=== PATIENT | female | born 1975 | race Caucasian/White ===

== ENCOUNTER 2020-01-03 20:49 | Inpatient (IN) | payer BC ==
[~2020-01-03] VITALS: Ht 172.7 cm; Wt 103.9 kg
[2020-01-03 22:56] LABS: Basophils # (auto) 0 10 ^3/uL (0-0.2); Basophils % (auto) 0.5 % (0.0-2.0); Eosinophils # (auto) 0.1 10 ^3/uL (0-0.8); Lymphocytes # (auto) 1.3 10 ^3/uL (0.4-5.4)
[2020-01-03 22:59] LABS: Eosinophils % (auto) 1.1 % (0.0-7.0); Hematocrit 38.2 % (36.0-46.0); Hemoglobin 12.8 g/dL (12.2-16.2); Lymphocytes % (auto) 14.1 % (10.0-50.0); Mean Corpuscular Hemoglobin 33.5 pg (28.0-32.0); Mean Corpuscular Hgb Conc. 33.5 g/dL (32.0-36.0); Monocytes # (auto) 0.4 10 ^3/uL (0-1.3); Monocytes % (auto) 4.6 % (0.0-12.0); Neutrophils # (auto) 7.5 10 ^3/uL (1.6-8.6); Neutrophils % (auto) 79.7 % (37.0-80.0); Nucleated Red Blood Cells % 0.1 %; Platelet Count (auto) 259 10^3/uL (140-450); Red Blood Cells 3.82 10^6/uL (4.0-5.20); Red Cell Distribution Width 14.4 % (11.8-14.3); White Blood Cell 9.4 10^3/uL (4.4-10.8)
[2020-01-03 23:13] LABS: INR 0.97 (0.9-1.15); Partial Thromboplastin Time 31.6 sec (23.64-32.05)
[2020-01-03 23:14] LABS: Albumin 3.1 g/dL (3.4-5.0); BUN/Creatinine Ratio 15.4; Calcium 8.2 mg/dL (8.5-10.1); Magnesium 2.3 mg/dL (1.6-2.6); Potassium 3.8 mmol/L (3.5-5.1)
[2020-01-03 23:16] LABS: Bilirubin, Total 0.6 mg/dL (0.2-1.0)
[2020-01-03] MEDS ORDERED: ACETAMINOPHEN 325 MG TAB PO ONE (23:45)
[2020-01-04 00:01] LABS: Urine Bacteria FEW /hpf (None Seen); Urine Blood Negative /uL (Negative); Urine Mucus FEW (None Seen); Urine WBC 3 /hpf (0 - 5)
[2020-01-04] MEDS ORDERED: SODIUM CHLORIDE 0.9% 1,000 ML IV ONE (03:30)
[2020-01-04] MEDS ORDERED: LORazepam 0.5 MG TAB PO ONE (03:30)
[2020-01-04] MEDS ORDERED: methylPREDNISolone SOD SUCC 125 MG/2 ML VL IV ONE (03:30)
[2020-01-04] MEDS ORDERED: cefTRIAXone 1GM/50ML D5W 50 ML IV ONE ×2 (03:30→09:30)
[2020-01-04] MEDS ORDERED: AZITHROMYCIN 500MG/ 250ML 250 ML IV ONE (08:15)
[2020-01-04] MEDS ORDERED: TEMAZEPAM 15 MG CAP PO PRN (09:30)
[2020-01-04] MEDS ORDERED: MORPHINE SULF INJ 2 MG/ML SYRINGE 1ML IV PRN (09:30)
[2020-01-04] MEDS ORDERED: ACETAMINOPHEN 500 MG TAB PO PRN (09:30)
[2020-01-04] MEDS ORDERED: NITROGLYCERIN 0.4 MG SL TAB SL PRN (09:30)
[2020-01-04] MEDS ORDERED: THIAMINE 100mg/ml INJ (200mg/2ml VIAL) IV ONE (09:30)
[2020-01-04] MEDS: CHOLECALCIFEROL (VITD3) 1,000UNIT=25mCg TAB PO SCH (10:00)
[2020-01-04 10:29] LABS: Alcohol, Urine < 3.0 mg/dL (0-10); Amphetamine Screen, Urine NEGATIVE (NEGATIVE); Barbiturate Scree,Urine NEGATIVE (NEGATIVE); Cannabinoid Screen, Urine NEGATIVE (NEGATIVE); Cocaine Screen, Urine NEGATIVE (NEGATIVE); Phencyclidine Screen, Urine NEGATIVE (NEGATIVE)
[2020-01-04 10:39] LABS: Benzodiazephine Screen, Urine POSITIVE (NEGATIVE); Opiate Scree,Urine NEGATIVE (NEGATIVE)
[2020-01-04] MEDS: ASPirin 81 mg TAB PO SCH (11:04)
[2020-01-04] MEDS: ZINC SULFATE 220mg CAP or TAB PO SCH (11:05)
[2020-01-04] MEDS: ENALAPRIL MALEATE 2.5 MG TAB PO SCH (11:05)
[2020-01-04] MEDS: FAMOTIDINE 20 MG TAB PO SCH ×2 (11:06→22:29)
[2020-01-04] MEDS: ASCORBIC ACID 1,000 MG TAB PO SCH (11:06)
[2020-01-04] MEDS: ENOXAPARIN SOD 40 MG/0.4 ML SYRINGE SC SCH ×2 (11:06→22:29)
[2020-01-04] MEDS: THIAMINE 100mg/ml INJ (200mg/2ml VIAL) IV SCH (11:10)
[2020-01-04] MEDS ORDERED: FUROSEMIDE 20 MG/2 ML VIAL IV ONE (12:00)
[2020-01-04] MEDS ORDERED: NICOTINE 14 MG/24HR TOPICAL PATCH TD ONE (12:15)
--- NOTE | 2020-01-04 12:20 | NUR ---
Telemetry admit from [facility] admitted to Telemetry unit after SBAR received from RAFFI Khan. Patient oriented to CORINA HAWTHORNE RN primary RN, unit, room, bed, and unit policies regarding patient care and visiting hours. Patient now on continuous telemetry monitoring, tele box #4 and telemetry reading on arrival to unit is 80bpm NSR. Patient placed on bedside oxygen @2L n/c, weighed by bedscale and encouraged to call if they need something. Bed in lowest/locked position, bed rails up x2, call light within reach. All questions and concerns addressed, patient verbalized understanding.
[2020-01-04 12:53] LABS: Cholesterol 192 mg/dL (< 200); HDL Cholesterol 36 mg/dL (40-59); LDL Cholesterol 142 mg/dL (< 100); Triglycerides 102 mg/dL (< 150)
[2020-01-04] MEDS ORDERED: ALBUTEROL SULF HFA 90MCG INH 200DOSE IN SCH (14:00)
[2020-01-04] MEDS ORDERED: CITA10TA70 PO (14:56)
[2020-01-04] MEDS ORDERED: ATOR10TA52 PO (14:56)
[2020-01-04] MEDS ORDERED: IBUP600T27 PO (14:56)
[2020-01-04] MEDS ORDERED: METO-169 PO (14:56)
--- NOTE | 2020-01-04 15:00 | NUR ---
CARDIO SPOKE WITH DARIN MARTIN RE: PATIENT B/P. NEW ORDERS RECEIVED/WILL CARRY OUT. WILL CONTINUE TO MONITOR
[2020-01-04 16:53] VITALS: BP 142/90
[2020-01-04] MEDS: FUROSEMIDE 20 MG/2 ML VIAL IV SCH (17:09)
[2020-01-04 20:00] VITALS: BP 162/89
[2020-01-04 21:55] VITALS: BP 162/89
[2020-01-04] MEDS ORDERED: ATORVASTATIN 20 MG TAB PO SCH (22:00)
[2020-01-04] MEDS: METOPROLOL TARTRATE 25 MG TAB PO SCH (22:31)
[2020-01-04] MEDS: ATORVASTATIN 20 MG TAB PO SCH (22:32)
[2020-01-05] MEDS ORDERED: PANTOPRAZOLE 40 MG TAB PO ONE (00:45)
[2020-01-05 05:00] VITALS: BP 152/89
[2020-01-05 05:37] LABS: Basophils # (auto) 0 10 ^3/uL (0-0.2); Basophils % (auto) 0.2 % (0.0-2.0); Eosinophils # (auto) 0 10 ^3/uL (0-0.8); Eosinophils % (auto) 0.2 % (0.0-7.0); Hematocrit 37.2 % (36.0-46.0); Hemoglobin 12.6 g/dL (12.2-16.2); Lymphocytes % (auto) 17.7 % (10.0-50.0); Mean Corpuscular Hemoglobin 33.9 pg (28.0-32.0); Mean Corpuscular Hgb Conc. 33.9 g/dL (32.0-36.0); Monocytes # (auto) 0.6 10 ^3/uL (0-1.3); Monocytes % (auto) 5.2 % (0.0-12.0); Neutrophils # (auto) 8.9 10 ^3/uL (1.6-8.6); Neutrophils % (auto) 76.7 % (37.0-80.0); Nucleated Red Blood Cells % 0.1 %; Platelet Count (auto) 289 10^3/uL (140-450); Red Blood Cells 3.72 10^6/uL (4.0-5.20); White Blood Cell 11.5 10^3/uL (4.4-10.8)
[2020-01-05 05:53] LABS: Albumin 3.1 g/dL (3.4-5.0); Calcium 8.8 mg/dL (8.5-10.1); Potassium 3.2 mmol/L (3.5-5.1)
[2020-01-05 05:59] LABS: BUN/Creatinine Ratio 17.6; Bilirubin, Total 0.4 mg/dL (0.2-1.0); Total Protein 7.1 g/dL (6.4-8.2)
[2020-01-05] MEDS: FUROSEMIDE 20 MG/2 ML VIAL IV SCH ×2 (06:14→17:55)
--- NOTE | 2020-01-05 07:45 | NUR ---
Opening Shift Note Assumed care of patient, awake, alert, and oriented. No S/S of distress/SOB or pain. Bed in lowest/locked position, bed rails up x2, call light within reach. Instructed on POC and to call for assist PRN. Will continue to monitor for changes Q1hr and PRN.
[2020-01-05 09:07] VITALS: BP 146/73
[2020-01-05] MEDS: cefTRIAXone 1GM/50ML D5W 50 ML IV SCH (09:09)
[2020-01-05] MEDS: ASCORBIC ACID 1,000 MG TAB PO SCH (09:10)
[2020-01-05] MEDS: ZINC SULFATE 220mg CAP or TAB PO SCH (09:10)
[2020-01-05] MEDS: ENOXAPARIN SOD 40 MG/0.4 ML SYRINGE SC SCH ×2 (09:11→21:04)
[2020-01-05] MEDS: CHOLECALCIFEROL (VITD3) 1,000UNIT=25mCg TAB PO SCH (09:11)
[2020-01-05] MEDS: NICOTINE 14 MG/24HR TOPICAL PATCH TD SCH (09:12)
[2020-01-05] MEDS: PANTOPRAZOLE 40 MG TAB PO SCH ×2 (09:12→21:03)
[2020-01-05] MEDS: FAMOTIDINE 20 MG TAB PO SCH ×2 (09:12→21:03)
[2020-01-05] MEDS: METOPROLOL TARTRATE 25 MG TAB PO SCH ×3 (09:12→21:03)
[2020-01-05] MEDS: ASPirin 81 mg TAB PO SCH (09:13)
[2020-01-05] MEDS: THIAMINE 100mg/ml INJ (200mg/2ml VIAL) IV SCH (09:13)
[2020-01-05] MEDS: ENALAPRIL MALEATE 2.5 MG TAB PO SCH (09:13)
[2020-01-05] MEDS ORDERED: POTASSIUM CHL 20 Meq TABLET PO ONE (12:00)
[2020-01-05] MEDS ORDERED: IOHEXOL 350 MG/ML 100ML IJ ONE (12:33)
[2020-01-05 13:00] VITALS: BP 157/99
[2020-01-05] MEDS: hydrALAZINE HCL 20 MG/ML VL IV PRN (13:20)
[2020-01-05] MEDS ORDERED: OMEP20TA PO (14:57)
[2020-01-05] MEDS ORDERED: ALPR1TAB7 PO (15:35)
[2020-01-05] MEDS ORDERED: BUPR8MIS SL (15:35)
[2020-01-05] MEDS ORDERED: guaiFENesin-DM 100/10mg/5ml SYR PO PRN (15:45)
[2020-01-05 17:09] VITALS: BP 145/82
--- NOTE | 2020-01-05 17:50 | NUR ---
PAGED HOSPITALIST PAGED HOSPITALIST RE: PATIENT HAS HEADACHE. PATIENT DOESN'T WANT TO TAKE EMAR PRESCRIBED PAIN MEDICATIONS. PATIENT TAKES IBUPROFEN 600MG Q6HPRN AT HOME. AWAITING RETURN CALL
--- NOTE | 2020-01-05 18:25 | NUR ---
HOSPITALIST CALL BACK RECEIVED CALL FROM DR SOFIA RE: PATIENT HEADACHE AND MEDICATION PATIENT TAKES AT HOME. ONE TIME ORDER OF IBUPROFEN 600 MG RECEIVED. WILL MEDICATE PER MD ORDERS. WILL CONTINUE TO MONITOR
[2020-01-05] MEDS ORDERED: IBUPROFEN 600 MG TAB PO ONE (18:30)
[2020-01-05] MEDS: ATORVASTATIN 20 MG TAB PO SCH (21:03)
[2020-01-05] MEDS: POTASSIUM CHL 20 Meq TABLET PO SCH (21:03)
--- NOTE | 2020-01-05 21:30 | NUR ---
IV insertion IV access obtained, via clean sterile technique by inserting 22 gauge catheter at RFA after 1 attempt. IV secured properly. No trauma to site. Patient tolerated well. IV removal IV DC'd with clean sterile technique, catheter fully intact. Pressure dressing applied to site. Patient tolerated well.
[2020-01-05 22:00] VITALS: BP 187/99
[2020-01-05 23:40] VITALS: BP 145/84
--- NOTE | 2020-01-06 03:29 | NUR ---
OPENING SHIFT NOTE: ARRIVED ON SHIFT REPORT RECEIVED. PATIENT RESTING IN BED, NO SIGNS OF DISTRESS. RESPIRATIONS EVEN AND UNLABORED. WILL CONTINUE TO MONITOR.
[2020-01-06 05:00] VITALS: BP 149/79
[2020-01-06 06:29] LABS: Potassium 3.7 mmol/L (3.5-5.1)
[2020-01-06] MEDS: FUROSEMIDE 20 MG/2 ML VIAL IV SCH ×2 (06:35→18:00)
[2020-01-06 06:41] LABS: Calcium 8.6 mg/dL (8.5-10.1)
[2020-01-06] MEDS: cefTRIAXone 1GM/50ML D5W 50 ML IV SCH (08:05)
[2020-01-06] MEDS: hydrALAZINE HCL 20 MG/ML VL IV PRN ×3 (08:06→22:41)
[2020-01-06 08:56] VITALS: BP 156/105
[2020-01-06] MEDS ORDERED: AZITHROMYCIN 500MG/ 250ML 250 ML IV ONE (10:45)
[2020-01-06] MEDS ORDERED: MULTIPLE VITAMINS W/ MINERALS TAB PO ONE (11:00)
--- NOTE | 2020-01-06 11:00 | NUR ---
CARMEN WALKED TO LAB .
[2020-01-06] MEDS: FAMOTIDINE 20 MG TAB PO SCH ×2 (11:40→20:52)
[2020-01-06] MEDS: POTASSIUM CHL 20 Meq TABLET PO SCH ×2 (11:40→20:53)
[2020-01-06] MEDS: ASPirin 81 mg TAB PO SCH (11:40)
[2020-01-06] MEDS: PANTOPRAZOLE 40 MG TAB PO SCH ×2 (11:40→20:53)
[2020-01-06] MEDS: ENALAPRIL MALEATE 2.5 MG TAB PO SCH (11:40)
[2020-01-06] MEDS: NICOTINE 14 MG/24HR TOPICAL PATCH TD SCH (11:41)
[2020-01-06] MEDS ORDERED: ALPRAZolam 0.5 MG TAB PO PRN (13:00)
[2020-01-06 13:18] VITALS: BP 147/92
[2020-01-06] MEDS: PROMETHAZINE HCL 25 MG/ML 1ML IV PRN ×2 (13:47→20:56)
--- NOTE | 2020-01-06 14:00 | NUR ---
24-HOUR URINE INITIATED, FIRST VOID DISCARDED. URINE HAT PLACED IN TOILET FOR COLLECTION, AND CONTAINER PLACED ON ICE.
[2020-01-06] MEDS: traMADol HCL 50 MG TAB PO PRN ×2 (14:05→20:52)
[2020-01-06] MEDS: chlordiazePOXIDE HCL 25 MG CAP PO PRN ×2 (14:48→20:53)
--- NOTE | 2020-01-06 17:11 | NUR ---
PATIENT REPORTING PERSISTENT HEADACHE DESPITE ANXIETY, PAIN, AND NAUSEA MEDICATIONS. PATIENT SHAKY, WILL CONTINUE LIBRIUM FOR DT S/S ORDERED. BP RE-ASSESSED AFTER SECOND HYDRALAZINE 148/71MMHG.
[2020-01-06 17:16] VITALS: BP 148/81
--- NOTE | 2020-01-06 18:36 | NUR ---
PATIENT ASLEEP, RESTING IN BED, NO SIGNS OF DISTRESS.
--- NOTE | 2020-01-06 19:25 | NUR ---
CARE ENDORSED TO YOGESH NUGENT.
[2020-01-06] MEDS: LABETALOL HCL 200 MG TAB PO SCH (20:52)
[2020-01-06] MEDS: ATORVASTATIN 20 MG TAB PO SCH (20:53)
[2020-01-06 22:00] VITALS: BP 177/101
[2020-01-06 22:40] VITALS: BP 165/98
[2020-01-07 00:30] VITALS: BP 152/85
[2020-01-07] MEDS: chlordiazePOXIDE HCL 25 MG CAP PO PRN ×2 (01:34→05:30)
[2020-01-07] MEDS: traMADol HCL 50 MG TAB PO PRN ×3 (01:34→09:49)
[2020-01-07] MEDS: PROMETHAZINE HCL 25 MG/ML 1ML IV PRN ×3 (01:35→09:48)
[2020-01-07 05:00] VITALS: BP 143/69
[2020-01-07] MEDS: FUROSEMIDE 20 MG/2 ML VIAL IV SCH (05:31)
[2020-01-07 08:00] VITALS: BP 148/79
--- NOTE | 2020-01-07 08:00 | NUR ---
ASSESSMENT NOTE PT IS ALERT ORIENTED X4, RESTING IN BED COMFORTABLE, ABLE TO SELF REPOSITION AND VERBALIS HER DEMANDS, AMBULATE NEEDED, PAIN 0/10 AT THIS TIME, CALL LIGHT WITHIN REACH
[2020-01-07] MEDS: cefTRIAXone 1GM/50ML D5W 50 ML IV SCH (08:40)
[2020-01-07 09:00] VITALS: BP 161/101
--- NOTE | 2020-01-07 09:00 | NUR ---
IV insertion IV access obtained, via clean sterile technique by inserting 22 gauge catheter at after attempt(s). IV secured properly. No trauma to site. Patient tolerated procedure well. OLD IV AT RT FOREARM REMOVED, SINCE START TO LEAK, TOLERATED WELL
[2020-01-07] MEDS: POTASSIUM CHL 20 Meq TABLET PO SCH (09:29)
[2020-01-07] MEDS: ASPirin 81 mg TAB PO SCH (09:30)
[2020-01-07] MEDS: ENALAPRIL MALEATE 2.5 MG TAB PO SCH (09:31)
[2020-01-07] MEDS: PANTOPRAZOLE 40 MG TAB PO SCH (09:31)
[2020-01-07] MEDS: LABETALOL HCL 200 MG TAB PO SCH (09:31)
[2020-01-07] MEDS: FAMOTIDINE 20 MG TAB PO SCH (09:32)
[2020-01-07] MEDS: NICOTINE 14 MG/24HR TOPICAL PATCH TD SCH (09:34)
[2020-01-07] MEDS ORDERED: ENOXAPARIN SOD 40 MG/0.4 ML SYRINGE SC SCH (10:00)
[2020-01-07] MEDS ORDERED: MULTIPLE VITAMINS W/ MINERALS TAB PO SCH (10:00)
[2020-01-07] MEDS ORDERED: AZITHROMYCIN 500MG/ 250ML 250 ML IV SCH (10:00)
[2020-01-07] MEDS ORDERED: THIAMINE HCL 100 MG TAB PO SCH (10:00)
--- NOTE | 2020-01-07 11:10 | NUR ---
DR BRAVO AT BED SIDE FOLLOWING UP ON PT, WITH DISCHARGE HOME INSTRUCTION AND FOLLOW UP OUTPATIENT, PT VERBALIS UNDERSTANDING
--- NOTE | 2020-01-07 11:20 | NUR ---
DANTE PT INSISTED TO GO DOWN TO THE LOBBY TO MEET HER DAUGHTER AND [employer]IT[employer]IAN SOME OF HER PERSONAL BELONGINGS
[2020-01-07] MEDS ORDERED: THIA100T10 PO (11:24)
[2020-01-07] MEDS ORDERED: ATOR20TA50 PO (11:24)
[2020-01-07] MEDS ORDERED: AZIT500T66 PO (11:24)
[2020-01-07] MEDS ORDERED: FAMO20TA10 PO (11:24)
[2020-01-07] MEDS ORDERED: LABE200T6 PO (11:24)
[2020-01-07] MEDS ORDERED: POTA-220 PO (11:24)
[2020-01-07] MEDS ORDERED: ASPI81CH43 PO (11:24)
[2020-01-07] MEDS ORDERED: HCTZ25T PO (11:24)
[2020-01-07] MEDS ORDERED: LOSA25TA38 PO (11:24)
--- NOTE | 2020-01-07 12:54 | NUR ---
Nutrition Assessment Notes Please refer to link for full assessment notes. Est Energy needs: 2654-5027 kcals (17-20 kcal/kgBW) Est Protein needs: 95-127 gms/day (1.5-2.0 gm/kgIBW) d/t pt adiposity Will continue to monitor and reassess prn. Addendum: 01/07/20 at [address] Amended: Links added.
[2020-01-07 13:00] VITALS: BP 112/75
[2020-01-07 14:20] VITALS: BP 171/101
--- NOTE | 2020-01-07 15:30 | NUR ---
ALL DISCHARGE INSTRUCTION GIVEN TO PT, VERBALIS UNDERSTANDING, PT WAS ABLE TO VERBALIS IT BACK, MD FOLLOW UP APPOINTMENT, STOP MEDS, RESUME MEDS, AND YACHT BUILDER HER NEW RX
--- NOTE | 2020-01-07 15:40 | NUR ---
Discharge instructions given as ordered. Encourage to follow up with PMD as instructed. All questions and concerns addressed. Patient verbalized understanding. Medication reconciliation form completed and copy given to patient. Home medications held in Pharmacy returned to patient, and needed vaccines given. Telemetry unit returned to ICU. Patient ambulated to vehicle via with all personal belongings, accompanied by staff and family member. No distress noted at time of departure.
[2020-01-07] MEDS ORDERED: levoFLOXacin 750MG 150 ML IV ONE (16:00)
[2020-01-08] MEDS ORDERED: levoFLOXacin 750MG 150 ML IV SCH (10:00)
== END 2020-01-07 15:40 | disposition home or self-care (01) | DRG 291 ==
LOC: ER 20:49 → TELE 01-04 02:50 → TELE-CENTR 01-04 12:00
PROVIDERS: ADMIT Internal Medicine; ATTEND Internal Medicine
DX: I11.0 Hypertensive heart disease with heart failure (principal); J96.01 Acute respiratory failure with hypoxia; I50.31 Acute diastolic (congestive) heart failure; J18.9 Pneumonia, unspecified organism; N39.0 Urinary tract infection, site not specified; F10.239 Alcohol dependence with withdrawal, unspecified; E66.9 Obesity, unspecified; Z20.828 Contact with and (suspected) exposure to other viral communicable diseases; E78.5 Hyperlipidemia, unspecified; Y90.0 Blood alcohol level of less than 20 mg/100 ml; F41.9 Anxiety disorder, unspecified; F17.210 Nicotine dependence, cigarettes, uncomplicated; Z82.49 Family history of ischemic heart disease and other diseases of the circulatory system; Z88.8 Allergy status to other drugs, medicaments and biological substances; Z85.42 Personal history of malignant neoplasm of other parts of uterus; Z79.82 Long term (current) use of aspirin
CPT/HCPCS: 36415; 71045; 71046; 71275; 80048; 80053; 80061; 80307; 81001; 81025; 82088; 82550; 82728; 83735; 83835; 83880; 84244; 84443; 84484; 85025; 85379; 85610; 85652; 85730; 87040; 87070; 87086; 87088; 87186; 87804; 87880; 93005; 93306; 93971; 93975; 96365; 96375; G0378; J0696